=== PATIENT | male | born 1960 | race Caucasian/White ===

== ENCOUNTER 2021-02-22 13:14 | Emergency (ER) | payer OTHER ==
[~2021-02-22] VITALS: Ht 175.3 cm; Wt 73.0 kg
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
[2021-02-22] MEDS: DIPH,PERTUSS(ACELL),TET VAC/PF 0.5 ML SYRINGE. VAX IM ONE (13:52)
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
--- NOTE | 2021-02-22 14:01 | RAD ---
EXAM: Right foot, 3 views. HISTORY: Pain. Trauma. COMPARISON: None. FINDINGS: 3 views of the right foot are obtained. There is no acute fracture, dislocation or subluxat ion. There is incidental ankylosis of the fifth distal interphalangeal joint. There is deformity at t he base of the first distal phalanx which may be projectional or due to a healed fracture. There is n o foreign body. IMPRESSION: No convincing acute osseous finding. Electronically signed by: Scarlett Negron MD (02/22/2021 1:59 PM) [id number]
[2021-02-22] MEDS ORDERED: HYDR-2761 PO (16:04)
[2021-02-22 16:15] VITALS: BP 166/91
== END 2021-02-22 16:51 | disposition home or self-care (01) ==
LOC: ER 13:14
DX: S52.502A Unspecified fracture of the lower end of left radius, initial encounter for closed fracture (principal); S50.811A Abrasion of right forearm, initial encounter; M79.671 Pain in right foot; V23.4XXA Motorcycle driver injured in collision with car, pick-up truck or van in traffic accident, initial encounter; Y93.I9 Activity, other involving external motion; Y92.89 Other specified places as the place of occurrence of the external cause; Y99.8 Other external cause status
CPT/HCPCS: 29125; 73120; 73630; 90471; 90715; 99285-25